=== PATIENT | male | born 1995 | race African-American/Black ===

== ENCOUNTER 2023-08-02 19:35 | Emergency (ER) | payer OTHER, BC ==
[~2023-08-02 19:35] MED LIST: Sodium Chloride 0.9% 1,000 ML BAG ONE
[2023-08-02 20:42] LABS: #Basophils 0.1 thou/uL (0.0-0.2); #Eosinphils 0.1 thou/uL (0.0-0.7); #Lymphocytes 1.8 thou/uL (1.20-3.40); #Monocytes 0.5 thou/uL (0.11-0.59); #Neutrophils 2.5 thou/uL (1.40-6.50); %Basophils 1.9 % (0.0-1.0); %Eosinophils 1.2 % (0.0-10.0); %Lymphocytes 36.7 % (21.0-51.0); %Monocytes 9.9 % (0.0-10.0); %Neutrophils 50.4 % (42.0-75.0); Hematocrit 48.7 % (42.0-52.0); Hemoglobin 15.3 g/dL (14.0-18.0); Mean Corpuscular HGB CONC 31.5 g/dL (32.0-36.0); Mean Corpuscular Hemoglobin 26.1 pg (27.0-31.0); Mean Platelet Volume 9.6 fL (7.4-10.4); Platelet Count 177 10x3/uL (130-400); RBC Distribution Width 12.4 % (11.5-14.5); Red Blood Cell (RBC) Count 5.86 mill/uL (4.70-6.10); White Blood Cell (WBC) Count 4.9 10x3/uL (4.8-10.8)
[2023-08-02 20:58] LABS: Anion Gap 17 mmol/L (10-20); BUN (Urea Nitrogen) 10 mg/dL (8.9-20.6); Bilirubin, Total 0.5 mg/dL (0.2-1.2); Calc. Creatinine Clearance 0 mL/min (70-130); Calcium 9.5 mg/dL (7.8-10.44); Carbon Dioxide 26 mmol/L (22-29); Chloride 104 mmol/L (98-107); Estimated GFR 97; Glucose 94 mg/dL (70-105); Potassium 3.7 mmol/L (3.5-5.1); Protein, Total 7.5 g/dL (6.0-8.3); Sodium 143 mmol/L (136-145)
[2023-08-02 20:59] LABS: ALT (SGPT) 26 U/L (8-55); AST (SGOT) 22 U/L (5-34); Alkaline Phosphatase 64 U/L (40-110); Globulin 3.5 g/dL (2.4-3.5)
== END 2023-08-02 21:38 | disposition home or self-care (01) ==
LOC: MADERS 19:35
DX: S01.01XA Laceration without foreign body of scalp, initial encounter (principal); R55 Syncope and collapse; W18.09XA Striking against other object with subsequent fall, initial encounter; Y93.H2 Activity, gardening and landscaping; Y92.69 Other specified industrial and construction area as the place of occurrence of the external cause
CPT/HCPCS: 12001; 70450; 71045; 80053; 85025; 87804; 93005; 96360; J7050